=== PATIENT | male | born 1955 | race Caucasian/White ===

== ENCOUNTER → 2019-01-21 | Outpatient (CLI) | payer MEDICARE, OTHER ==
[~2019-01-21] VITALS: Ht 177 cm; Wt 131.6 kg
[~2019-01-21] MED LIST: ASPI-586 PO; CALC-250 PO; CITA20TA12 PO; CLOP75TA69 PO; DICL35CA PO; HYDR-3816 PO; LOSA25TA41 PO; MELO15TA39 PO; OXYC1TAB87 PO; PANT40TA3 PO; ROSU40TA23 PO; allopurinol PO
[2019-01-21 09:57] VITALS: BP 134/80
[2019-01-21 10:27] LABS: BASOPHILS % (AUTO) 0 % (0-10); EOSINOPHILS # (AUTO) 0.2 10^3/uL (0.0-0.3); EOSINOPHILS % (AUTO) 2 % (0-10); HEMATOCRIT 46 % (40-54); HEMOGLOBIN 15.2 G/DL (13.3-17.7); LYMPHOCYTES # (AUTO) 2.3 X 10^3 (1.0-4.0); LYMPHOCYTES % (AUTO) 21 % (12-44); MEAN CORPUSCULAR HEMOGLOBIN 31 PG (25-34); MEAN CORPUSCULAR HGB CONC 33 G/DL (32-36); MEAN CORPUSCULAR VOLUME 92 FL (80-99); MEAN PLATELET VOLUME 9.6 FL (7.4-10.4); MONOCYTES # (AUTO) 1.2 X 10^3 (0.0-1.0); MONOCYTES % (AUTO) 11 % (0-12); NEUTROPHILS # (AUTO) 6.9 X 10^3 (1.8-7.8); NEUTROPHILS % (AUTO) 65 % (42-75); PLATELET COUNT 219 10^3/uL (130-400); RED CELL DISTRIBUTION WIDTH 13.4 % (10.0-14.5); WHITE BLOOD COUNT 10.6 10^3/uL (4.3-11.0)
== END ==
LOC: PREOP 09:39
PROVIDERS: ATTEND Surgery
DX: Z01.818 Encounter for other preprocedural examination (principal); Z01.812 Encounter for preprocedural laboratory examination; K21.9 Gastro-esophageal reflux disease without esophagitis
CPT/HCPCS: 36415; 85025; 87081

== ENCOUNTER 2019-01-23 09:13 | Day surgery (SDC) | payer MEDICARE, OTHER ==
[~2019-01-23] VITALS: Ht 177 cm; Wt 131.6 kg
[2019-01-23] VITALS (13 sets, daily range): BP systolic 124–180; BP diastolic 84–102
[~2019-01-23 09:13] MED LIST changes: -HYDR-3816 PO
[2019-01-23] MEDS ORDERED: ceFAZolin 2 GM IV Premixed 50 ML IV ONE (09:45)
[2019-01-23] MEDS: LACTATED RINGERS 1,000 ML IV PRN ×2 (09:47→13:50)
--- NOTE | 2019-01-23 11:09 | Progress Note-Pre Operative ---
Pre-Operative Progress Note H&P Reviewed The H&P was reviewed, patient examined and no changes noted. Date Seen by Provider: Jan 23, 2019 Time Seen by Provider: 11:05 Date H&P Reviewed: Jan 23, 2019 Time H&P Reviewed: 11:00 Pre-Operative Diagnosis: Morbid obesity, reflux, symptomatic lap band port PAT THOMAS APRN Jan 23, 2019 11:09 POS
[2019-01-23] MEDS ORDERED: HYDR-3816 PO (11:13)
--- NOTE | 2019-01-23 11:14 | Discharge Inst-Surgical ---
D/C Lap Instructions-KIDO Reconcile Patient Problems Problems Reviewed?: Yes New, Converted, or Re-Newed RX: RX on Chart Follow Up Appt in 2 weeks Activity as tolerated No driving for 24 hours No driving while on pain medications Incentive Spirometry use every 2 hours while awake Regular Diet Symptoms to Report: Fever over 101 degree F, Nausea/Vomiting Infection Signs and Symptoms to report: Increased redness, Foul odor of wound, Increased drainage Bathing instructions: May shower Operative Area Clean/Dry; Keep incision clean/dry If any problems/questions: Contact your physician or go to Emergency Room PAT THOMAS APRN Jan 23, 2019 11:14 POS
[2019-01-23] MEDS ORDERED: HYDROcodone/APAP 5 MG/325 MG (LORTAB) TAB PO ONE (11:15)
[2019-01-23] MEDS ORDERED: ONDANSETRON 4 MG/2 ML (SDV) Z0FRAN IVP PRN ×3 (11:15→15:00)
[2019-01-23] MEDS ORDERED: morphine INJ 10 MG/ML 1ML (SYR OR VIAL) IVP PRN (11:15)
[2019-01-23] MEDS ORDERED: ACETAMINOPHEN 325 MG TABLET PO PRN (11:15)
[2019-01-23] MEDS ORDERED: MIDAZOLAM 2 MG/2 ML (VERSED) VIAL ONE (12:12)
[2019-01-23] MEDS ORDERED: proPOfol 200 MG/20 ML (DIPRIVAN) VIAL IV ONE (12:12)
[2019-01-23] MEDS ORDERED: DEXAMETHASONE 10 MG/ML (DECADRON) 1 ML VIAL ONE (12:12)
[2019-01-23] MEDS ORDERED: ROCURONIUM 10 MG/ML 5 ML SYRINGE IV ONE (12:12)
[2019-01-23] MEDS ORDERED: SEVOFLURANE (ULTANE) 15 ML INHAL SOLN ONE ×5 (12:12→13:43)
[2019-01-23] MEDS ORDERED: LIDOCAINE PF 2% 5 ML (XYLOCAINE) VIAL ONE (12:12)
[2019-01-23] MEDS ORDERED: fentaNYL INJECTION 100 MCG/2 ML AMP ONE (12:12)
[2019-01-23] MEDS ORDERED: ONDANSETRON 4 MG/2 ML (SDV) Z0FRAN ONE (12:12)
[2019-01-23] MEDS ORDERED: GLYCOPYRROLATE 0.2 MG/ML (ROBINUL) 2 ML VIAL ONE (12:17)
[2019-01-23] MEDS ORDERED: NEOSTIGMINE 3 MG/3 ML VIAL ONE (12:17)
[2019-01-23] MEDS ORDERED: BUP/EPI 0.5% 1:200,000 (MARCAINE) 10ML VIAL IJ ONE (12:23)
[2019-01-23] MEDS ORDERED: PHENYLEPHRINE 100 MCG/ML 10 ML (ANESTHESIA) SYR ONE (13:26)
--- NOTE | 2019-01-23 13:55 | Progress Note-Post Operative ---
Post-Operative Progess Note Surgeon (s)/Ropewalk Rope Maker (s) Surgeon BLAIRE HYDE MD Ropewalk Rope Maker: gold downs APRN Pre-Operative Diagnosis Morbid obesity, reflux, symptomatic lap band port Post-Operative Diagnosis same, posterior band slippage. Procedure & Operative Findings Date of Procedure 01/23/19 Procedure Performed/Findings diagnostic laparoscopy, laparoscopic removal adjustable gastric band and subcutaneous reservoir. Anesthesia Type get Estimated Blood Loss Estimated blood loss (mL): minimal Specimens/Packing Specimens Removed none BLAIRE HYDE MD Jan 23, 2019 13:55 POS
[2019-01-23] MEDS ORDERED: morphine INJ 10 MG/ML 1ML (SYR OR VIAL) IVP ONE ×2 (14:15→15:00)
[2019-01-23] MEDS ORDERED: HYDROmorphone 2 MG/ML VIAL (DILAUDID) IV ONE (14:15)
--- NOTE | 2019-01-23 14:20 | Anesthesia-General Post-Op ---
General Patient Condition Mental Status/LOC: Same as Preop Cardiovascular: Unsatisfactory (Pt. is hypertensive immediately post-op; however, his preop NIBP was similar. Will continue to monitor his NIBP to make sure it continues to decrease. Pain medication given for pain rate of 5/10 will likely help with his hypertension as well.) Nausea/Vomiting: Absent Respiratory: Satisfactory Pain: Controlled Complications: Absent Post Op Complications Complications None Follow Up Care/Instructions Patient Instructions None needed. Anesthesia/Patient Condition Patient Condition Patient is doing well, no complaints, stable vital signs, no apparent adverse anesthesia problems. No complications reported per nursing. NIKITA WHITLOCK CRNA Jan 23, 2019 14:20 POS
[2019-01-23] MEDS ORDERED: MEPERIDINE (DEMEROL) INJ 50 MG/ML IVP ONE (15:00)
[2019-01-23] MEDS ORDERED: fentaNYL INJECTION 100 MCG/2 ML AMP IVP ONE (15:00)
--- NOTE | 2019-01-23 15:53 | OPERATIVE REPORT ---
DATE OF SERVICE: 01/23/2019 ATTENDING PRIMARY CARE PHYSICIAN: Dr. Dallas Montenegro. PREOPERATIVE DIAGNOSES: 1. Morbid obesity. 2. Gastroesophageal reflux disease, symptomatic band port. POSTOPERATIVE DIAGNOSES: 1. Morbid obesity. 2. Gastroesophageal reflux disease, symptomatic band port with inferior band slippage with the angle from the vertebrae greater than 90 degrees. No band erosion. PROCEDURES: Diagnostic laparoscopy, removal of adjustable gastric band and subcutaneous reservoir. SURGEON: Blaire Hyde MD YARD CONDUCTOR: Abdelrahman Graves APRN ANESTHESIA: General endotracheal. ESTIMATED BLOOD LOSS: Minimal. FINDINGS: 1. Morbid obesity. 2. Gastroesophageal reflux disease, symptomatic band port with inferior band slippage with the angle from the vertebrae at 90 degrees. No band erosion. DISPOSITION: The patient tolerated the procedure well. INDICATIONS: The patient is a 63-year-old male known to us. He has a history of morbid obesity and medical comorbidities related to his obesity including hypertension and sleep apnea. He met the medical criteria for bariatric surgery and underwent a laparoscopic gastric sleeve resection on 02/02/2014. Since that time, he has not had much success with weight loss. He does hold the majority of his weight in his abdomen with mesenteric and omental fat. His amount of subcutaneous fat along the abdominal wall as relatively low. He had problems with the port rubbing up against objects causing significant pain and then the port was moved lateral; however, he had stated that this still caused significant symptoms. Over the years, he has gotten multiple adjustments; however, has not had any success with weight loss. His initial weight was 317 pounds at 5 feet 9 inches and his last weight in the office was 293 pounds. He has also developed significant gastroesophageal reflux disease. Despite maximal medical therapy and proceeding with the necessary lifestyle and diet accommodation for bariatric surgery, he continues to be symptomatic with reflux as well as resistance to weight loss. He will need a diagnostic laparoscopy to rule out band slippage as well as most likely removal due to the symptomatic port along his abdominal wall. DESCRIPTION OF PROCEDURE: The patient was brought to the operating room and laid supine on the table. After adequate IV pain and sedative medications and general endotracheal intubation, the abdomen was prepped and draped in standard surgical fashion. A 0.5% Marcaine with epinephrine was then used to anesthetize the overlying skin in the left upper abdominal quadrant and a small transverse skin incision was made using a 15 blade. An 0 silk suture was applied to the medial aspect incision for retraction and a Veress needle inserted with a low opening pressure of 0 mmHg. The abdomen was then insufflated to 15 mmHg pressure. The Veress needle was removed and a 5 mm Xcel trocar was placed followed by a 5 mm 45-degree angle laparoscope visualizing the peritoneal cavity. A 4-quadrant abdominal exploration was performed. The omega angle of the band was approximately 90 degrees or greater when the patient was placed in steep reverse Trendelenburg position consistent with a band slippage. There was no erosion identified. There was also no strangulation identified. Under direct visualization, we then proceeded to place a midabdominal left of midline 10 mm port as well as two right upper abdominal quadrant 5 mm ports. Due to the posteroinferior slippage of the band as well as symptomatic port, it was decided to proceed with removal of the adjustable gastric band as well as the subcutaneous reservoir. The buckle of the port was identified with just retraction of the band. This was then unbuckled and then removed without any resistance after the tubing was cut using suture scissors. The band was then removed through the 10 mm port site. The 10 mm port site fascia and peritoneum were then closed under direct visualization using a Mark-Kirstin device. Along the right lateral abdomen where the port was replaced, the skin and subcutaneous tissue overlying the subcutaneous port was then anesthetized using 0.5% Marcaine with epinephrine and a transverse skin incision was made using a 15 blade. The port was then dissected out and the nonabsorbable sutures were removed from the fascia and the port was then removed as well as the residual band tubing all intact. Good hemostasis was observed. The abdomen was desufflated and the remaining ports were removed. All skin incisions were closed using 4-0 Monocryl running subcuticular sutures. Wounds were then cleaned and covered with Dermabond. The patient tolerated the procedure well. We will start IV normal pain medication as well as a clear liquid diet. Once he is tolerating clears, has good pain control with oral pain medications, ambulating well, we will discharge him home. We will have him follow up in our office in 2 weeks. We will also recommend a clear liquid diet for the next 5 days and then to slowly advance as tolerated. Job ID: [id number] DocumentID: [id number] Dictated Date: 01/23/2019 14:03:32 Master Welder Date: 01/23/2019 15:52:11 Dictated By: BLAIRE HYDE MD MTDD
[2019-01-23] MEDS ORDERED: HYDROcodone/APAP 7.5 MG/325 MG (LORTAB, LORCET PLUS) TABLET PO ONE (15:58)
[2019-01-23] MEDS ORDERED: HYDROcodone/APAP 5 MG/325 MG (LORTAB) TAB ONE (16:00)
== END 2019-01-23 16:40 | disposition home or self-care (01) ==
LOC: SDC 09:13 → EDSTATUS 11:15 → SDC 16:40
PROVIDERS: ATTEND Surgery
DX: K95.09 Other complications of gastric band procedure (principal); E66.9 Obesity, unspecified; K21.9 Gastro-esophageal reflux disease without esophagitis; I10 Essential (primary) hypertension; I25.10 Atherosclerotic heart disease of native coronary artery without angina pectoris; E78.5 Hyperlipidemia, unspecified; G47.33 Obstructive sleep apnea (adult) (pediatric); Z87.891 Personal history of nicotine dependence; Z68.41 Body mass index [BMI] 40.0-44.9, adult; Z95.1 Presence of aortocoronary bypass graft; Z83.3 Family history of diabetes mellitus

== ENCOUNTER 2019-04-24 09:55 | Outpatient (CLI) | payer MEDICARE, OTHER ==
[~2019-04-24] VITALS: Ht 177.8 cm; Wt 137.5 kg
[~2019-04-24 09:55] MED LIST changes: +HYDR-3816 PO
[2019-04-24] MEDS ORDERED: CHOL500049 PO (10:13)
[2019-04-24 10:38] VITALS: BP 145/95
[2019-04-24 10:48] LABS: BASOPHILS % (AUTO) 0 % (0-10); EOSINOPHILS # (AUTO) 0.2 10^3/uL (0.0-0.3); EOSINOPHILS % (AUTO) 2 % (0-10); HEMATOCRIT 44 % (40-54); HEMOGLOBIN 14.7 G/DL (13.3-17.7); LYMPHOCYTES # (AUTO) 1.3 X 10^3 (1.0-4.0); LYMPHOCYTES % (AUTO) 17 % (12-44); MEAN CORPUSCULAR HEMOGLOBIN 30 PG (25-34); MEAN CORPUSCULAR HGB CONC 34 G/DL (32-36); MEAN CORPUSCULAR VOLUME 89 FL (80-99); MEAN PLATELET VOLUME 9.4 FL (7.4-10.4); MONOCYTES # (AUTO) 0.8 X 10^3 (0.0-1.0); MONOCYTES % (AUTO) 10 % (0-12); NEUTROPHILS # (AUTO) 5.4 X 10^3 (1.8-7.8); NEUTROPHILS % (AUTO) 70 % (42-75); PLATELET COUNT 201 10^3/uL (130-400); RED CELL DISTRIBUTION WIDTH 13.3 % (10.0-14.5); WHITE BLOOD COUNT 7.8 10^3/uL (4.3-11.0)
== END 2019-04-24 10:35 | disposition home or self-care (01) ==
LOC: PREOP 09:55
PROVIDERS: ATTEND Surgery
DX: Z01.812 Encounter for preprocedural laboratory examination (principal); E66.01 Morbid (severe) obesity due to excess calories
CPT/HCPCS: 36415; 85025; 87081

== ENCOUNTER 2019-05-01 08:00 | Inpatient (IN) | payer MEDICARE, OTHER ==
[2019-05-01] VITALS (16 sets, daily range): BP systolic 121–142; BP diastolic 69–92
[~2019-05-01] VITALS: Ht 177.8 cm; Wt 126.5 kg
[~2019-05-01 08:00] MED LIST changes: +CHOL500049 PO; +HYDR-34 PO; -HYDR-3816 PO
[2019-05-01] MEDS ORDERED: NS IV 1000 ML 1,000 ML IV SCH (10:25)
--- NOTE | 2019-05-01 10:25 | Progress Note-Pre Operative ---
Pre-Operative Progress Note H&P Reviewed The H&P was reviewed, patient examined and no changes noted. Date Seen by Provider: May 01, 2019 Time Seen by Provider: 10:15 Date H&P Reviewed: May 01, 2019 Time H&P Reviewed: 10:15 Pre-Operative Diagnosis: morbid obesity, HTN, NICO BLAIRE HYDE MD May 01, 2019 10:25
[2019-05-01] MEDS ORDERED: NALOXONE 0.4 MG/ML 1 ML (NARCAN) VIAL IV PRN (10:30)
[2019-05-01] MEDS ORDERED: ceFAZolin 2 GM/50 ML NS 50 ML IV ONE (10:30)
[2019-05-01] MEDS ORDERED: ONDANSETRON 4 MG/2 ML (SDV) Z0FRAN IV PRN (10:30)
[2019-05-01] MEDS ORDERED: oxyCODONE 5 MG/5 ML ORAL SOLN (roxiCODONE) 5 ML UDC PO PRN (10:30)
[2019-05-01] MEDS ORDERED: diphenhydrAMINE 50 MG/ML INJ (BENADRYL) IVP PRN (10:30)
[2019-05-01] MEDS ORDERED: fentaNYL INJECTION 1,000 MCG in NS (IVPB) 80 ML IV SCH (10:30)
[2019-05-01] MEDS ORDERED: diphenhydrAMINE 50 MG/ML INJ (BENADRYL) IV PRN (10:30)
[2019-05-01] MEDS ORDERED: metroNIDAZOLE 500MG/100ML IVPB 100 ML IV SCH (10:30)
[2019-05-01] MEDS ORDERED: METOCLOPRAMIDE INJ 10 MG/2 ML (REGLAN) IV PRN (10:30)
[2019-05-01] MEDS: LACTATED RINGERS 1,000 ML IV PRN ×2 (10:32→13:15)
[2019-05-01] MEDS ORDERED: ONDANSETRON 4 MG/2 ML (SDV) Z0FRAN ONE ×2 (11:04→11:39)
[2019-05-01] MEDS ORDERED: FAMOTIDINE 20MG/2ML IV (PEPCID) ONE (11:04)
[2019-05-01] MEDS ORDERED: ONDANSETRON 4 MG/2 ML (SDV) Z0FRAN IV ONE (11:15)
[2019-05-01] MEDS ORDERED: FAMOTIDINE 20MG/2ML IV (PEPCID) IV ONE (11:15)
[2019-05-01] MEDS ORDERED: BUP/EPI 0.5% 1:200,000 (SENSORCAINE) 30 ML VIAL ONE (11:26)
[2019-05-01] MEDS ORDERED: fentaNYL INJECTION 100 MCG/2 ML AMP ONE (11:39)
[2019-05-01] MEDS ORDERED: DEXAMETHASONE 10 MG/ML (DECADRON) 1 ML VIAL ONE (11:39)
[2019-05-01] MEDS ORDERED: proPOfol 200 MG/20 ML (DIPRIVAN) VIAL IV ONE (11:39)
[2019-05-01] MEDS ORDERED: LIDOCAINE PF 2% 5 ML (XYLOCAINE) VIAL ONE (11:39)
[2019-05-01] MEDS ORDERED: SEVOFLURANE (ULTANE) 15 ML INHAL SOLN ONE ×5 (11:39→14:36)
[2019-05-01] MEDS ORDERED: ROCURONIUM 10 MG/ML 5 ML SYRINGE IV ONE (11:39)
[2019-05-01] MEDS ORDERED: MIDAZOLAM 2 MG/2 ML (VERSED) VIAL ONE (11:39)
[2019-05-01] MEDS ORDERED: morphine INJ 10 MG/ML 1ML (SYR OR VIAL) IVP ONE (13:00)
[2019-05-01] MEDS ORDERED: ONDANSETRON 4 MG/2 ML (SDV) Z0FRAN IVP PRN (13:00)
[2019-05-01] MEDS ORDERED: MEPERIDINE (DEMEROL) INJ 50 MG/ML IVP ONE (13:00)
[2019-05-01] MEDS ORDERED: fentaNYL INJECTION 100 MCG/2 ML AMP IVP ONE (13:00)
[2019-05-01] MEDS ORDERED: NEOSTIGMINE 3 MG/3 ML VIAL ONE (13:36)
[2019-05-01] MEDS ORDERED: GLYCOPYRROLATE 0.2 MG/ML (ROBINUL) 2 ML VIAL ONE (13:36)
[2019-05-01] MEDS ORDERED: morphine INJ 10 MG/ML 1ML (SYR OR VIAL) ONE (13:47)
[2019-05-01] MEDS ORDERED: ceFAZolin 2 GM/50 ML NS 50 ML IV SCH (14:00)
[2019-05-01] MEDS ORDERED: PHENYLEPHRINE 100 MCG/ML 10 ML (ANESTHESIA) SYR ONE (14:05)
--- NOTE | 2019-05-01 14:18 | Progress Note-Post Operative ---
Post-Operative Progess Note Surgeon (s)/Telecommunications Line Installer (s) Surgeon BLAIRE HYDE MD Telecommunications Line Installer: gold downs WILD LIFE MANAGER Pre-Operative Diagnosis morbid obesity, HTN, NICO Post-Operative Diagnosis same Procedure & Operative Findings Date of Procedure 05/01/19 Procedure Performed/Findings laparoscopic gastric sleeve resection. Anesthesia Type get Estimated Blood Loss Estimated blood loss (mL): minimal Specimens/Packing Specimens Removed stomach BLAIRE HYDE MD May 01, 2019 14:18
--- NOTE | 2019-05-01 14:24 | Discharge Inst-Surgical ---
D/C Lap Instructions-BARRETT Follow Up Appt in 2 weeks Activity as tolerated No driving for 24 hours No driving while on pain medications Incentive Spirometry use every 2 hours while awake Phase 1 clear liquid diet next 2 weeks. Symptoms to Report: Fever over 101 degree F, Nausea/Vomiting Infection Signs and Symptoms to report: Increased redness, Foul odor of wound, Increased drainage Bathing instructions: May shower Operative Area Clean/Dry; Keep incision clean/dry If any problems/questions: Contact your physician or go to Emergency Room BLAIRE HYDE MD May 01, 2019 14:24
--- NOTE | 2019-05-01 15:25 | NUR ---
RECEIVED REPORT FROM EVA ROSENBERG RN
--- NOTE | 2019-05-01 16:20 | NUR ---
FENTANYL TRUST VAULT CUSTODIAN MED REQUESTED FROM PHARM
[2019-05-01] MEDS: 1/2 NS W/KCL 20 MEQ/L 1,000 ML IV SCH ×3 (16:41→22:51)
--- NOTE | 2019-05-01 16:48 | NUR ---
pt resting at this time, denies pain or needs. Pt sating 93% on 5L o2
--- NOTE | 2019-05-01 19:25 | OPERATIVE REPORT ---
DATE OF SERVICE: 05/01/2019 ATTENDING PRIMARY CARE PHYSICIAN: Dr. Dallas Montenegro. PREOPERATIVE DIAGNOSES: Morbid obesity, hypertension, sleep apnea. POSTOPERATIVE DIAGNOSES: Morbid obesity, hypertension, sleep apnea. PROCEDURE: Laparoscopic gastric sleeve resection. SURGEON: Blaire Hyde MD DIRECTOR OF RECRUITING: Abdelrahman Graves APRN ANESTHESIA: General endotracheal. ESTIMATED BLOOD LOSS: Minimal. FINDINGS: Mild postsurgical changes. No hiatal hernia. DISPOSITION: The patient tolerated the procedure well. INDICATIONS: The patient is a 63-year-old male known to us. He has struggled with obesity for many years. He has tried a number of diet and exercise attempts with no success. He underwent a laparoscopic adjustable gastric band in the past. He did have issues with this including port site irritation and had to have the port removed to the right lateral abdomen. Over several years in adjustments, he continued to struggle with weight loss despite stating trying to adhere to a high protein diet with lean meat protein sources as well as regularly scheduled exercise. He was able to lose some weight; however, did regain a significant amount of weight back. He also continued to have his same medical comorbidities, which include hypertension and hypercholesterolemia as well as degenerative joint disease. He had the laparoscopic adjustable gastric band removed approximately three months ago. He is now here for the laparoscopic gastric sleeve resection. DESCRIPTION OF PROCEDURE: The patient was brought to the operating room, laid supine on the table. After adequate IV pain and sedative medications and general endotracheal intubation, the abdomen was prepped and draped in standard surgical fashion. A 0.5% Marcaine with epinephrine was used to anesthetize overlying skin in the left upper abdominal quadrant and a transverse skin incision made using a 15 blade. An 0 silk suture was applied to the medial aspect of incision for retraction and a Veress needle inserted with a low opening pressure of 0 mmHg was identified and the abdomen was then insufflated to 15 mmHg pressure. The Veress needle removed and a 5 mm XL trocar placed followed by a 5 mm 45-degree angle laparoscope visualizing the peritoneal cavity. A 4-quadrant abdominal exploration was performed. There were some postsurgical changes at the upper aspect of the stomach; however, minimal adhesions. The stomach and liver appeared normal. Under direct visualization, we then proceeded to place a midabdominal left midline 10 mm port after the skin and peritoneal lining were anesthetized using 0.5% Marcaine with epinephrine and a transverse skin incision made using a 15 blade. In a similar manner, a mid abdominal right of midline 15 mm port was placed followed by a right upper abdominal quadrant 5 mm port. The epigastric region was then anesthetized and a transverse skin incision was made using 11 blade. A tract was then created through the abdominal wall layers using a trocar to a 5 mm port and through this opening, a medium size Nathansen liver retractor was placed and the left lobe of the liver retracted anteriorly and superiorly. The patient was then placed in steep reverse Trendelenburg position. We then measured 6 cm from the pylorus along the greater curvature and marked this with a marking pen. The gastrocolic ligament next to the stomach was then opened using a Sonicision entering the lesser sac. We then proceeded our dissection caudally until we were approximately 2 cm below our marking using the Sonicision with visualization of good hemostasis. We then proceeded in the cephalad direction, taking down the short gastric vessels. The entire angle of His connective tissue fibers were taken down as well as the posterior aspect of the stomach behind this. Good hemostasis was observed. A 36-Afghan ViSiGi soft gastric tube was then placed and directed into the pylorus. Using this as our guide, we then proceeded with our gastric sleeve resection starting off with a 45 mm black load followed by three 60 mm black loads completing our gastric sleeve resection and leaving approximately 2 cm next to the gastroesophageal junction. Good hemostasis was observed. The staple line corners were then clipped with 5 mm clips and the entire staple line was covered with Tisseel fibrin glue followed by placement of the omentum over the staple line. A leak test was performed with no leak identified. The stomach was then removed through the 15 mm port site and the liver retractor removed. The fascia and peritoneal lining to the 10 and 15 mm port sites were then closed under direct visualization using a Mark-Kirstin device and 0 Vicryl suture. The abdomen desufflated and remaining ports removed. All skin incisions were closed using 4-0 Monocryl running subcuticular sutures. Wounds were then cleaned and covered with Dermabond. The patient tolerated the procedure well. We will admit him for 23-hour observation. We will proceed with pain control with a DIETETIC AIDE pump. We also proceed with DVT prophylaxis with early ambulation, calf SCDs as well as Lovenox injections. He may have ice chips today and then start phase 1 clear liquid diet tomorrow and once he is able to tolerate 60 mL every 30 minutes, has adequate pain control with oral pain medications, ambulating well, we will discharge him home. He will be instructed to continue with the phase 1 clear liquid diet for the next two weeks as well. Job ID: [id number] DocumentID: [id number] Dictated Date: 05/01/2019 14:34:51 Pump Station Operator Date: 05/01/2019 19:24:33 Dictated By: BLAIRE HYDE MD
[2019-05-01] MEDS: RT-ALBUTEROL SULF 2.5 MG/3 ML PRE-MIX VIAL INH SCH ×2 (19:38→21:55)
[2019-05-01] MEDS: ENOXAPARIN 40 MG/0.4 ML (LOVENOX) SYR SC SCH (20:36)
[2019-05-01] MEDS: ONDANSETRON 4 MG/2 ML (SDV) Z0FRAN IVP SCH ×2 (20:36→20:44)
[2019-05-01] MEDS: METOCLOPRAMIDE INJ 10 MG/2 ML (REGLAN) IVP SCH ×2 (20:36→20:44)
[2019-05-01] MEDS: ceFAZolin 2 GM/50 ML NS 50 ML IV SCH (21:49)
[2019-05-01] MEDS: metroNIDAZOLE 500MG/100ML IVPB 100 ML IV SCH (22:46)
[2019-05-02] MEDS: ONDANSETRON 4 MG/2 ML (SDV) Z0FRAN IVP SCH ×2 (00:46→05:52)
[2019-05-02] MEDS: METOCLOPRAMIDE INJ 10 MG/2 ML (REGLAN) IVP SCH ×2 (00:47→05:52)
[2019-05-02] MEDS: RT-ALBUTEROL SULF 2.5 MG/3 ML PRE-MIX VIAL INH SCH ×3 (02:19→11:28)
[2019-05-02 03:22] VITALS: BP 133/85
[2019-05-02] MEDS: ceFAZolin 2 GM/50 ML NS 50 ML IV SCH (05:51)
[2019-05-02] MEDS: metroNIDAZOLE 500MG/100ML IVPB 100 ML IV SCH (06:40)
[2019-05-02] MEDS: 1/2 NS W/KCL 20 MEQ/L 1,000 ML IV SCH ×2 (06:41→09:03)
--- NOTE | 2019-05-02 06:53 | Anesthesia-General Post-Op ---
General Patient Condition Mental Status/LOC: Same as Preop Cardiovascular: Satisfactory Nausea/Vomiting: Absent Respiratory: Satisfactory Pain: Controlled Complications: Absent Post Op Complications Complications None Follow Up Care/Instructions Patient Instructions None needed. Anesthesia/Patient Condition Patient Condition Patient is doing well, no complaints, stable vital signs, no apparent adverse anesthesia problems. No complications reported per nursing. D/C home per [facility] Criteria: MENA Branham CRNA May 02, 2019 06:53
[2019-05-02 07:30] LABS: HEMOGLOBIN 14.3 G/DL (13.3-17.7); MEAN PLATELET VOLUME 9.6 FL (7.4-10.4); RED CELL DISTRIBUTION WIDTH 13.7 % (10.0-14.5); WHITE BLOOD COUNT 12.2 10^3/uL (4.3-11.0)
[2019-05-02] MEDS: ENOXAPARIN 40 MG/0.4 ML (LOVENOX) SYR SC SCH (07:48)
[2019-05-02 07:50] LABS: CALCIUM 9.1 MG/DL (8.5-10.1); CREATININE SERUM 3.39 MG/DL (0.60-1.30); POTASSIUM 3.4 MMOL/L (3.6-5.0)
[2019-05-02 08:00] VITALS: BP 137/72
[2019-05-02] MEDS ORDERED: PANTOPRAZOLE 40 MG (PROTONIX) TAB PO SCH (09:00)
[2019-05-02] MEDS ORDERED: PANTOPRAZOLE 40 MG (PROTONIX) VIAL IV SCH (09:00)
[2019-05-02] MEDS ORDERED: SENNA W/DOCUSATE (SENOKOT S) TABLET PO SCH (09:00)
--- NOTE | 2019-05-02 09:30 | NUR ---
CALLED DR. BARRETT HUNTER PATIENT'S CREATININ LEVEL 3.39. ORDERS TO RUN BOLUS OF 750 LR AND REPEAT BMP AT 1200.
[2019-05-02] MEDS ORDERED: LACTATED RINGERS 1,000 ML IV SCH ×2 (09:45→10:00)
[2019-05-02] MEDS ORDERED: ONDANSETRON 4 MG/2 ML (SDV) Z0FRAN IVP PRN (10:30)
[2019-05-02] MEDS ORDERED: METOCLOPRAMIDE INJ 10 MG/2 ML (REGLAN) IVP PRN ×3 (10:30→12:45)
--- NOTE | 2019-05-02 11:31 | Progress Note ---
Subjective Date Seen by a Provider: May 02, 2019 Time Seen by a Provider: 11:00 Subjective/Events-last exam doing well. pain controlled. has some nausea, no vomiting. no SOB. no f ever/chills. just started clears. Objective Exam Vital Signs Date Time Temp Pulse Resp B/P (MAP) Pulse Ox O2 Delivery O2 Flow Rate FiO2 05/02/19 08:00 37.0 93 18 137/72 (93) 95 Nasal Cannula 2.00 05/02/19 08:00 95 Nasal Cannula 2.00 05/02/19 07:02 93 Nasal Cannula 2.00 05/02/19 03:22 37.2 93 18 133/85 (101) 100 Nasal Cannula 2.00 05/02/19 02:19 93 Nasal Cannula 2.50 05/01/19 23:44 37.0 98 16 133/78 (96) 96 Nasal Cannula 4.00 05/01/19 21:55 94 Nasal Cannula 2.50 05/01/19 20:38 106 16 138/72 (94) 93 Simple Mask 4.00 05/01/19 20:35 93 Simple Mask 4.00 05/01/19 19:38 36.5 94 20 124/69 (87) 93 Simple Mask 4.00 05/01/19 19:38 93 OxyMask 4.00 05/01/19 18:30 89 20 142/80 (100) 91 Simple Mask 5.00 05/01/19 17:38 36.7 88 20 135/77 (96) 94 Simple Mask 5.00 5.00 05/01/19 17:38 88 20 140/79 (99) 92 Simple Mask 5.00 05/01/19 16:22 94 Simple Mask 5.00 05/01/19 16:14 36.7 80 20 137/86 94 Simple Mask 5.00 5.00 05/01/19 16:03 36.7 80 20 137/86 (103) 94 Simple Mask 5.00 05/01/19 15:18 36.3 12 126/74 (91) 94 OxyMask 5 05/01/19 15:18 OxyMask 5 05/01/19 15:10 OxyMask 5 05/01/19 15:10 14 121/73 (89) 94 OxyMask 5 05/01/19 15:00 12 133/74 (93) 14 05/01/19 14:55 OxyMask 7 05/01/19 14:50 14 124/75 (91) 94 OxyMask 14 05/01/19 14:40 15 131/78 (95) 94 OxyMask 14 05/01/19 14:40 OxyMask 15 05/01/19 14:30 16 139/75 (96) 93 OxyMask 14 05/01/19 14:23 OxyMask 15 05/01/19 14:23 36.1 16 133/79 (97) 98 OxyMask 14 I & O 05/02/19 07:00 Intake Total 2200 ml Output Total 1060 ml Balance 1140 ml Capillary Refill : Less Than 3 SecondsLess Than 3 Seconds General Appearance: No Apparent Distress HEENT: PERRL/EOMI Neck: Full Range of Motion Respiratory: Chest Non Tender, Lungs Clear, Decreased Breath Sounds Cardiovascular: Regular Rate, Rhythm Gastrointestinal: normal bowel sounds, soft, tenderness Extremity: Normal Capillary Refill Neurologic/Psychiatric: Alert, Oriented x3 Skin: Normal Color Lymphatic: No Adenopathy Results Lab Laboratory Tests 05/02/19 07:25: White Blood Count 12.2H, Red Blood Count 4.71, Hemoglobin 14.3, Hematocrit 43, Mean Corpuscular Volume 90, Mean Corpuscular Hemoglobin 30, Mean Corpuscular Hemoglobin Concent 34, Red Cell Distribution Width 13.7, Platelet Count 206, Mean Platelet Volume 9.6, Sodium Level 139, Potassium Level 3.4L, Chloride Level 104, Carbon Dioxide Level 18L, Anion Gap 17H, Blood Urea Nitrogen 29H, Cr eatinine 3.39H, Estimat Glomerular Filtration Rate 18, BUN/Creatinine Ratio 9, Glucose Level 86, Calcium Level 9.1 Assessment/Plan Assessment/Plan Assess & Plan/Chief Complaint s/p lap gastric sleeve resection. elevated creatinine, do not have baseline and will repeat. good U/O. ambulate. start phase 1 clear liquid diet. start PO pain meds. Clinical Quality Measures DVT/VTE Risk/Contraindication: Risk Factor Score Per Nursin RFS Level Per Nursing on Admit: 4+=Very High BLAIRE HYDE MD May 02, 2019 11:31
[2019-05-02 12:00] VITALS: BP 148/83
[2019-05-02 12:42] LABS: POTASSIUM 3.2 MMOL/L (3.6-5.0)
--- NOTE | 2019-05-02 13:09 | NUR ---
DR. HYDE GAVE VERBAL ORDER TO PUT IN ATTENDING DISCHARGE ORDER FOR PATIENT FOR 05/02/19.
[2019-05-02 13:34] VITALS: BP 137/72
[2019-05-02 13:48] LABS: CREATININE SERUM 3.28 MG/DL (0.60-1.30)
--- NOTE | 2019-05-02 15:49 | NUR ---
UPON DISCHARGE FENTANYL INSIDE WIREMAN PUMP WAS EMPTIED. A TOTAL OF 96.6ML WAS LEFT IN THE BAG. THAT WAS WASTED WITH CHARGE NURSE TERI WITNESS
== END 2019-05-02 14:20 | disposition home or self-care (01) | DRG 621 ==
LOC: EDSTATUS 08:00 → 4TH 10:11 → SURG 10:12 → 4TH 15:42
PROVIDERS: ADMIT Surgery; ATTEND Surgery
PROC: 0DB64Z3 Excision of Stomach, Percutaneous Endoscopic Approach, Vertical (ICD-10-PCS; principal; 2019-05-01 12:34)
DX: E66.01 Morbid (severe) obesity due to excess calories (principal); Z68.41 Body mass index [BMI] 40.0-44.9, adult; G47.33 Obstructive sleep apnea (adult) (pediatric); I10 Essential (primary) hypertension; K21.9 Gastro-esophageal reflux disease without esophagitis; M19.91 Primary osteoarthritis, unspecified site; E78.00 Pure hypercholesterolemia, unspecified; I25.2 Old myocardial infarction; Z95.5 Presence of coronary angioplasty implant and graft
CPT/HCPCS: 36415; 80048; 85027; 94640; 94664; 94760